=== PATIENT | male | born 1955 | race Caucasian/White ===

== ENCOUNTER 2024-03-07 21:29 | Emergency (ER) | payer OTHER, BC, MEDICARE, SELFPAY ==
[2024-03-07 21:29] VITALS: BP 176/80; PULSE 80; RESP 16; TEMP 36.8; O2SAT 98; BMI 23.6
--- NOTE | 2024-03-07 23:00 | RAD_ITS ---
EXAM: XR RIGHT WRIST COMPLETE, 3 OR MORE VIEWS CLINICAL INDICATION: pain TECHNIQUE: Frontal, lateral and oblique views of the right wrist. COMPARISON: No relevant prior studies available. FINDINGS: BONES/JOINTS: Moderate degenerative changes of the radiocarpal joint with joint space narrowing and subchondral cyst in the distal radius. Degenerative changes of the 1st carpometacarpal joint. Widening of the scapholunate interval suggesting disruption of the scapholunate interosseous ligament. No acute fracture. Normal alignment. No sclerotic or destructive changes observed. SOFT TISSUES: Unremarkable. No soft tissue swelling or gas. No radiopaque foreign body. RAD/Wrist min 3 Views IMPRESSION: 1. Moderate degenerative changes of the radiocarpal joint with joint space narrowing and subchondral cyst in the distal radius. 2. Degenerative changes of the 1st carpometacarpal joint. 3. Widening of the scapholunate interval suggesting disruption of the scapholunate interosseous ligament. Electronically Signed: Karan Hightower MD at 0:50 EST ,
--- NOTE | 2024-03-07 23:00 | CT_ITS ---
EXAM: CT CERVICAL SPINE WITHOUT INTRAVENOUS CONTRAST CLINICAL INDICATION: head injury TECHNIQUE: Helically acquired images were obtained of the cervical spine without intravenous contrast. 2D reformatted images were reviewed. This CT exam was performed using one or more of the following dose reduction techniques: automated exposure control, adjustment of the mA and/or kV according to patient size, and/or use of iterative reconstruction technique. RADIATION DOSE: CTDIvol = 22.44 mGy, DLP = 480.56 mGy-cm COMPARISON: No relevant prior studies available. FINDINGS: VERTEBRAE: Severe multilevel bilateral cervical vertebral facet arthropathy. No fracture. No traumatic subluxation. No discrete lytic or blastic abnormality. Normal alignment. Normal craniocervical junction and cervicothoracic junction. DISCS/SPINAL CANAL/NEURAL FORAMINA: Moderate multilevel cervical degenerative disc disease. No critical stenosis. SOFT TISSUES: Unremarkable. No prevertebral soft tissue swelling. LYMPH NODES: Unremarkable. No cervical adenopathy. LUNG APICES: Unremarkable as visualized. Clear. CT/Spine Cervical without Contras IMPRESSION: Moderate to severe cervical degenerative changes. No acute fractures or subluxations. Electronically Signed: Karan Hightower MD at 0:30 EST ,
--- NOTE | 2024-03-07 23:00 | CT_ITS ---
EXAM: CT HEAD WITHOUT INTRAVENOUS CONTRAST CLINICAL INDICATION: head injury TECHNIQUE: Multiple axial images were obtained of the head without intravenous contrast. This CT exam was performed using one or more of the following dose reduction techniques: automated exposure control, adjustment of the mA and/or kV according to patient size, and/or use of iterative reconstruction technique. RADIATION DOSE: CTDIvol = 44.99 mGy, DLP = 931.09 mGy-cm COMPARISON: No relevant prior studies available. FINDINGS: BRAIN AND EXTRA-AXIAL SPACES: Moderate generalized atrophy. Moderate low density bilaterally in the deep white matter. No intra- or extra-axial hemorrhage. No evidence of acute infarct. No intracranial mass or mass effect. There is preservation of the gregorio/white matter interface. Posterior fossa structures are unremarkable. No hydrocephalus. Basal cisterns are patent. BONES/JOINTS: Unremarkable. No discrete lytic or blastic abnormalities. SINUSES: Retention cyst left maxillary sinus. MASTOID AIR CELLS: Unremarkable. Clear. ORBITS: Visualized globes, extraocular muscles, optic nerves and retrobulbar fat appear unremarkable. CT/Brain/Head without Contrast IMPRESSION: Moderate generalized atrophy. Moderate low density bilaterally in the deep white matter. This likely represents chronic small vessel ischemic changes in the deep white matter. Electronically Signed: Karan Hightower MD at 0:23 EST ,
[2024-03-07] MEDS: Diphth,Pertuss(Acell),Tet Vac 0.5 ML Vial IM (23:14)
--- NOTE | 2024-03-07 23:40 | RAD_ITS ---
EXAM: XR Ribs Unilateral W/ PA Chest Min 3 Views INDICATION: Male, 68 years old. Chest wall pain TECHNIQUE: PA and lateral views COMPARISON: None FINDINGS: DEVICES: None LUNGS: No confluent air space opacity. No concerning pulmonary nodule. No pleural effusion or pneumothorax. MEDIASTINUM: Cardiac and mediastinal silhouettes are within normal limits. No central pulmonary vascular congestion. . SKELETAL STRUCTURES: No acute rib fracture. No lytic or blastic lesion. UPPER ABDOMEN: Unremarkable RAD/Ribs Uni Min 3V w/PA Chest IMPRESSION: 1. No acute cardiopulmonary disease 2. No acute rib fracture. Electronically Signed: Frank Huddleston MD at 0:14 EST ,
[2024-03-08 00:10] VITALS: BP 185/90; PULSE 60; RESP 24; O2SAT 99
[2024-03-08 02:00] VITALS: BP 112/80; PULSE 69; RESP 16; O2SAT 99
--- NOTE | 2024-03-08 02:26 | EX.ED.DYSGE1 ---
HPI History of Present Illness Chief Complaint: Fall Informant: patient and spouse/S.O. Narrative Narrative: Patient is a 68-year-old male who states that he was at work this evening just 1 to 2 hours ago when he was stepping over a chair and lost his balance and fell. He states he struck his head but denies any loss of consciousness or history of bleeding disorder or blood thinner use. He also states he tried to catch himself with his right hand and injured his right wrist. He states he was able to get back up following the fall but sustained a laceration to his forehead and with concern for underlying trauma and/or the fact the laceration may need sutured he was sent in for evaluation. Patient reports pain to the right chest wall following the fall as well. He denies change in vision nausea vomiting light sensitivity or headache PFSH PFSH Allergy/AdvReac Type Severity Reaction Status Date / Time No Known Allergies Allergy Verified 03/07/24 21:30 Social History Smoking Status: Never smoker ROS ROS ED Constitutional Constitutional ED: Denies chills or fever(s) Eyes Eyes: Denies blurry vision, change in vision or diplopia ENT ENT ED: Denies sore throat Cardiovascular Cardiovascular: Reports other Details: Negative syncope ; Denies chest pain Respiratory/Chest Respiratory/Chest: Denies cough or dyspnea Gastrointestinal Gastrointestinal: Denies abdominal pain, diarrhea, nausea or vomiting Genitourinary Genitourinary ED: Denies dysuria Musculoskeletal Musculoskeletal: Reports other Details: Positive right wrist and right rib/chest wall pain ; Denies neck pain Integumentary Reports Abrasions and other Details: Positive forehead laceration Neurologic Neurologic: Denies headache(s) or paresthesias Hematologic/Lymphatic Hematologic/Lymphatic: Denies easy bleeding or easy bruising EXAM Physical Exam Const Vital Signs: 03/07/24 21:29 03/08/24 00:10 03/08/24 00:25 Temperature 98.3 F Temperature Source Oral Pulse Rate 80 60 Respiratory Rate 16 24 H Respiratory Effort Normal Respiratory Depth Normal Respiratory Pattern Normal Blood Pressure 176/80 H 185/90 H Blood Pressure Mean 112 121 Pulse Ox 98 99 Oxygen Delivery Method Room Air Room Air Room Air 03/08/24 02:00 Temperature Temperature Source Pulse Rate 69 Respiratory Rate 16 Respiratory Effort Respiratory Depth Respiratory Pattern Blood Pressure 112/80 Blood Pressure Mean 90 Pulse Ox 99 Oxygen Delivery Method Room Air Positive well nourished and well developed General Appearance ED: well developed HEENT HEENT Narrative: Patient has a hematoma with a 3 cm subcutaneous layer deep linear laceration just above the right eyebrow. There is minimal ooze of blood but no retained foreign body. Patient also has soft tissue swelling with ecchymosis to the bridge of the nose. No active nasal bleeding or septal hematoma noted. No signs of depressed or basilar skull fracture Eyes PERRL and EOMs intact bilaterally Eyes Narrative: No hyphema Neck supple Neck Narrative: No bony deformity or step-off of the cervical spine no midline tenderness to palpation Chest Wall Chest Narrative: There is reproducible right anterior chest wall pain rib regions 10-12 without bony deformity or crepitance noted Resp normal respiratory effort and clear to auscultation bilaterally Cardio regular rate and regular rhythm GI normal to inspection, nondistended, normoactive bowel sounds, non-tender, non-distended and no masses GI Narrative: No abrasions or ecchymosis present. No voluntary guarding or rigidity or pulsatile mass Auscultation: normoactive bowel sounds Palpation: soft Back/Spine Back/Spine Narrative: No bony deformity or step-off of the thoracic or lumbar spine no midline tenderness to palpation Extremity Extremity Narrative: Pelvis is stable there is no shortening or external rotation of either lower extremity Patient has an apparent ganglion cyst to the volar aspect of the right wrist. There is pain with palpation near the anatomical snuffbox. There is soft tissue swelling of the distal right forearm without obvious bony deformity or joint effusion. No ligamentous laxity. No obvious tendon injury Patient is able to move all extremities without pain Neuro oriented x3, CN's II-XII intact bilaterally and no sensory deficits noted Sensorium / Orientation: alert Motor Exam: strength 5/5 throughout Psych mental status grossly normal Skin Skin Narrative: Laceration to the forehead with hematoma and ecchymosis to the bridge of the nose as documented above MDM MDM MDM Narrative Medical decision making narrative: Patient arrived to ER hypertensive but otherwise with stable vitals. He reported mechanical fall and therefore there is no need for cardiac or syncope workup. However in order to ensure he does not have a traumatic skull fracture versus traumatic subdural or subarachnoid hemorrhage versus nasal bone fracture versus cervical compression fracture or spondylolisthesis I did like to perform a CT of the head and cervical spine. With pain along the right ribs there is concern for rib fracture versus rib contusion versus pneumothorax. Also with pain in the right wrist there is concern for fracture versus dislocation versus sprain so a wrist x-ray was also obtained. CTs of the head and cervical spine revealed no acute findings. Rib x-ray revealed no fracture or pneumothorax. The wrist x-ray revealed no obvious fracture either but did show changes concerning for potential scapholunate injury. As he does not have an acute fracture and is neurovascularly intact I do not feel the need for emergent orthopedic consultation but patient be placed in a Velcro thumb spica splint for stabilization. His head will be sutured as documented below secondary to the forehead laceration. Tetanus status was also updated secondary to the laceration. At this time however as he is neurovascularly intact without signs of acute skull or cervical spine fracture or pneumothorax there is no need for further intervention in the ER and he is otherwise safe for discharge Patient had the right forehead wound cleaned with chlorhexidine. He was anesthetized using 6 mL of 2% lidocaine with epinephrine in local fashion. The wound was copiously irrigated normal saline. Then eleven 5-0 Ethilon sutures were placed in simple interrupted fashion. This brought the wound together well with good approximation. Patient tolerated the procedure well without complication. History & Record Review Discussion w/independent historian: Patient and Significant other Radiography Diagnostic Testing: Clinical Impression(s) from Imaging Studies Brain CT 03/07/24 23:00 IMPRESSION: Moderate generalized atrophy. Moderate low density bilaterally in the deep white matter. This likely represents chronic small vessel ischemic changes in the deep white matter. Electronically Signed: Karan Hightower MD at 0:23 EST , Cervical Spine CT 03/07/24 23:00 IMPRESSION: Moderate to severe cervical degenerative changes. No acute fractures or subluxations. Electronically Signed: Karan Hightower MD at 0:30 EST , Wrist X-Ray 03/07/24 23:00 IMPRESSION: 1. Moderate degenerative changes of the radiocarpal joint with joint space narrowing and subchondral cyst in the distal radius. 2. Degenerative changes of the 1st carpometacarpal joint. 3. Widening of the scapholunate interval suggesting disruption of the scapholunate interosseous ligament. Electronically Signed: Karan Hightower MD at 0:50 EST , Ribs w/Chest X-Ray 03/07/24 23:40 IMPRESSION: 1. No acute cardiopulmonary disease 2. No acute rib fracture. Electronically Signed: Frank Huddleston MD at 0:14 EST , Right rib x-ray with 1 view chest as interpreted by the emergency medicine physician reveals no acute rib fracture pneumothorax or pleural effusion Right wrist x-ray as interpreted by the emergency medicine physician reveals a subchondral cyst near the distal radius consistent with his physical exam as well as potential widening of the scapholunate joint space but no obvious fracture or dislocation noted Discharge Plan Triage Chief Complaint: Fall Other Complaint: Laceration ED Provider: Jewel Priest Dx/Rx/DC Orders Clinical Impression: Laceration of forehead, Right wrist sprain, Contusion of rib on right side, Accidental fall Instructions: Understanding a Wrist Sprain, ED Laceration, All Closures, ED Bruise, Rib Primary Care Provider: Massimo Quijano Referrals: [facility]Group of Physicians] - Massimo Quijano DO [Primary Care Provider] - Activity Restrictions/Additional Instructions: Please wear your Velcro wrist brace for stabilization as your x-ray has concern for damage to your scapholunate ligament. Follow-up with your family doctor or return to the ER in 7 days for suture removal. Print Language: Malawian Disposition Disposition: Home, Self Care Discharge Date/Time: 03/08/24 02:49
[2024-03-08] MEDS: Acetaminophen 500 MG Tablet 1000 MG PO (02:30)
[2024-03-08] MEDS: Lidocaine 2% /Epi 1:100 (20ml) 20 ML VIAL INFILT (02:30)
== END 2024-03-08 02:49 | disposition home or self-care (01) ==
PROVIDERS: Emergency Provider Emergency Medicine; PCP Family Medicine; Visit Provider Emergency Medicine
DX: S01.81XA Laceration without foreign body of other part of head, initial encounter (principal); S20.211A Contusion of right front wall of thorax, initial encounter; M67.431 Ganglion, right wrist; S63.501A Unspecified sprain of right wrist, initial encounter; Z23 Encounter for immunization; W01.190A Fall on same level from slipping, tripping and stumbling with subsequent striking against furniture, initial encounter
CPT/HCPCS: 12013; 70450; 71101; 72125; 73110; 90471; 90715; 99285

== ENCOUNTER → 2024-04-24 | Outpatient (CLI) | payer OTHER, MEDICARE, BC, SELFPAY ==
--- NOTE | 2024-04-24 18:07 | MRI_ITS ---
STUDY: MRI RIGHT WRIST WITHOUT CONTRAST REASON FOR EXAM: Male, 69 years old. Wrist strain - widened scapholunate interval per xray. TECHNIQUE: Standardized fat and water weighted pulse sequences were obtained in all 3 orthogonal planes. COMPARISON: None. FINDINGS: There is a multiseptated ganglion cyst at the volar margin of the radiocarpal joint, overall measuring 1.1 cm AP, 2.8 cm transverse, and 1.9 cm craniocaudad. Intact visualized distal radius and ulna. There is a central disc tear of the triangular fibrocartilage with a small distal radioulnar joint effusion. Intact carpal bones. There are cystic/erosive changes throughout the carpal bones. There is degenerative arthrosis of the radiocarpal, intercarpal, midcarpal, and carpometacarpal articulations. Normal visualized interosseous scapholunate ligament. Normal visualized dorsal (extrinsic) ligaments. Normal visualized volar (extrinsic) ligaments. There is mild tendinosis and tenosynovitis of the extensor carpi ulnaris tendon. Normal remainder of the extensor tendons. Normal flexor tendons. Normal carpal tunnel with a normal median nerve. Intact visualized metacarpal bones. There is mild subcutaneous soft tissue edema along the dorsum of the wrist. MRI/Upper Ext Joint Only(Routine) IMPRESSION: 1.1 x 2.8 x 1.9 cm multiseptated ganglion cyst at the volar margin of the radiocarpal joint. Central disc tear of the triangular fibrocartilage with a small distal radioulnar joint effusion. Cystic/erosive changes throughout the carpal bones. Degenerative arthrosis of the radiocarpal, intercarpal, midcarpal, and carpometacarpal articulations. Mild tendinosis and tenosynovitis of the extensor carpi ulnaris tendon. Mild subcutaneous soft tissue edema along the dorsum of the wrist. Electronically Signed: Dewayne Agosto MD at 10:18 EST ,
== END | disposition home or self-care (01) ==
LOC: MRI 13:35
PROVIDERS: PCP Family Medicine; Referring Provider Physician Assistant; Visit Provider Physician Assistant
DX: S66.919A Strain of unspecified muscle, fascia and tendon at wrist and hand level, unspecified hand, initial encounter (principal); X58.XXXA Exposure to other specified factors, initial encounter
CPT/HCPCS: 73221